=== PATIENT | male | born 1980 | race African-American/Black ===

== ENCOUNTER 2021-12-15 08:57 | Emergency (ER) | payer OTHER ==
[~2021-12-15] VITALS: Ht 165.1 cm; Wt 67.1 kg
[2021-12-15] MEDS ORDERED: IV NS 0.9% 1,000 ML BAG IV ONE (09:00)
--- NOTE | 2021-12-15 09:11 | NUR ---
BIB [facility] FROM HOME,SEIZURE EPISODE X 2 WITNESSED BY GIRLFRIEND,BLOOD SUGAR 133. PT STATES THAT HE HAS NO HX OF SEIZURE BUT WAS BROUGHT PREVIOUSLY FOR A SEIZURE. ATTACHED TO MONITOR, VITALS ARE WITHIN NORMAL LIMITS, NO RESP DISTRESS NOTED. DR COSTA AT BEDSIDE, AWAITING MD ORDERS.
--- NOTE | 2021-12-15 09:18 | NUR ---
IV ESTABLISHED R AC 20G. LABS DRAWN AND COLLECTED AT BEDSIDE.
[2021-12-15 09:21] LABS: BASOPHILS % (AUTO) 0.7 % (0.0-2.0); EOSINOPHILS % (AUTO) 2.7 % (0.0-6.0); HEMATOCRIT 44 % (39-51); HEMOGLOBIN 14.3 g/dL (13.5-17.5); LYMPHOCYTES # (AUTO) 2.4 K/uL (0.8-4.8); LYMPHOCYTES % (AUTO) 36.2 % (20.0-44.0); MEAN CORPUSCULAR HGB CONC 32 g/dl (31.0-36.0); MEAN CORPUSCULAR VOLUME 95 fL (80-96); MONOCYTES # (AUTO) 0.8 K/uL (0.1-1.30); MONOCYTES % (AUTO) 11.7 % (2.0-12.0); NEUTROPHILS # (AUTO) 3.3 K/uL (1.8-8.9); NEUTROPHILS % (AUTO) 48.7 % (43.0-81.0); PLATELET COUNT (AUTO) 427 K/uL (150-450); RED BLOOD CELL COUNT(AUTO) 4.69 MIL/uL (4.5-6.0); WHITE BLOOD COUNT (AUTO) 6.7 K/uL (4.3-11.0)
[2021-12-15 10:05] LABS: CALCIUM, SERUM 9.5 mg/dL (8.5-10.1); CARBON DIOXIDE 18 mmol/L (21-32); CHLORIDE 102 mmol/L (98-107); CREATININE 1.2 mg/dL (0.6-1.3); GLUCOSE 110 mg/dL (74-106); POTASSIUM 4.2 mmol/L (3.5-5.1); SODIUM SERUM 139 mmol/L (136-145); UREA NITROGEN, BLOOD 11 mg/dL (7-18)
[2021-12-15 10:11] LABS: ALANINE AMINOTRANSFERASE 33 U/L (12-78); ALCOHOL, BLOOD < 3 mg/dL (0-0); ALKALINE PHOSPHATASE 90 U/L (46-116); ASPARTATE AMINOTRANSFERASE 28 U/L (15-37); BILIRUBIN,DIRECT 0.1 mg/dL (0.0-0.2); BILIRUBIN,TOTAL 0.3 mg/dL (0.2-1.0); TOTAL PROTEIN, SERUM 8.1 g/dL (6.4-8.2)
--- NOTE | 2021-12-15 10:12 | NUR ---
URINE COLLECTED AND SENT
[2021-12-15 10:43] VITALS: BP 126/65
--- NOTE | 2021-12-15 10:44 | NUR ---
IV removed. Catheter intact and site benign. Pressure and 4x4 applied to site. No bleeding noted.Patient discharged to home in stable condition. Written and verbal after care instructions given. Patient verbalizes understanding of instruction.
== END 2021-12-15 10:45 | disposition home or self-care (01) ==
LOC: EDBD 09:15 → ER 09:15
DX: G40.909 Epilepsy, unspecified, not intractable, without status epilepticus (principal); R40.4 Transient alteration of awareness
CPT/HCPCS: 99285; 96360; 93005; 71045; 70450; 85025; 80048; 80076; 36415; 80320; 80307; J7030; G0480